=== PATIENT | male | born 1965 | race Caucasian/White ===

== ENCOUNTER 2020-08-10 13:35 | Emergency (ER) | payer OTHER, MEDICAID ==
[~2020-08-10] VITALS: Ht 177.8 cm; Wt 81.6 kg
[2020-08-10 13:41] VITALS: BP_SYST 130
[2020-08-10] MEDS ORDERED: HYDR-4272 PO (14:34)
[2020-08-10] MEDS ORDERED: IBUP-1971 PO (14:34)
[2020-08-10 16:08] VITALS: BP_SYST 130
== END 2020-08-10 16:08 | disposition home or self-care (01) ==
LOC: SED 13:35
DX: M54.5 Low back pain (principal); V49.50XA Passenger injured in collision with unspecified motor vehicles in traffic accident, initial encounter; Y93.89 Activity, other specified; Y92.89 Other specified places as the place of occurrence of the external cause; Y99.8 Other external cause status
CPT/HCPCS: 99283